=== PATIENT | female | born 1970 | race Caucasian/White ===

== ENCOUNTER 2019-06-06 11:31 | Observation (INO) | payer SELFPAY ==
[~2019-06-06] VITALS: Ht 167.6 cm; Wt 85.4 kg
[~2019-06-06 11:31] MED LIST: AMOXICILLIN/CL875 MG OR; AMOXICILLIN875 MG OR; ANTIVERT PO; ASPIRIN 8181 MG PO; AUGMENTIN875TAB OR; CIPRODEX1 ML AD; CIPROFLOXACN500 MG PO; GABAPENTIN300 MG PO; GLYBURIDE5 MG PO; LISINOPRIL2.5 MG PO; MEDDOSEPAK PO; METFORMIN1000 MG PO; METFORMIN500 MG PO; NEURONTIN100 MG PO; PRAVSTATIN SODI10 MG OR; TRIAMCINOLON0.11 EX; ZOFRAN ODT4 MG PO
--- NOTE | 2019-06-06 11:31 | NUR ---
PT TO ROOM FOR BEDSIDE TRIAGE
--- NOTE | 2019-06-06 12:00 | NUR ---
PT STATES HAVING INTERMITTENT DIZZINESS FOR ONE WEEK. STATES VOMITING WHEN THE DIZZINESS FIRST OCCURED. PT STATES THAT SHE FEELS HERSELF AND ROOM THE SPINNING WHEN IT HAPPENS. PT DENIES ANY DIZZINESS AT THIS TIME. PT IS AOX4, DENIES ANY N/V, C/P, SOB OR WEAKNESS.
[2019-06-06 12:33] LABS: HEMATOCRIT 37.8 % (37.0-47.0); HEMOGLOBIN 12.8 g/dl (12.0-16.0); IMMATURE GRANULOCYTES 0.3 % (0.0-5.0); MEAN CELL VOLUME 80.9 fL CALC (80.0-100.0); MEAN CORPUSCULAR HGB 27.4 pG CALC (26.0-32.0); MEAN CORPUSCULAR HGB CONC 33.9 g/L CALC (32.0-36.0); NEUT# 4.8 thou/uL (2.00-7.15); RED BLOOD COUNT 4.67 mill/uL (4.20-5.60); RED CELL DISTRI WIDTH 13.2 % (11.5-15.5)
[2019-06-06 12:57] LABS: ANION GAP 15 (6-22 (CALC)); BUN 15 mg/dL (7-17); BUN/CREATININE RATIO 25 (12-20 (CALC)); CARBON DIOXIDE 25 mmol/l (22-30); CHLORIDE 103 mmol/l (95-108); CREATININE 0.6 mg/dL (0.5-1.0); GFR > 60 ML/MIN (>=60 (CALC)); GFR FOR AFR.AMER. > 60 ML/MIN (>=60 (CALC)); POTASSIUM 4.1 mmol/l (3.5-5.1); SODIUM 138 mmol/l (137-146)
--- NOTE | 2019-06-06 13:00 | NUR ---
PT INFORMED OF LAB FINDINGS.
--- NOTE | 2019-06-06 14:00 | NUR ---
PT RESTING ON STRETCHER, NO COMPLAINTS STATED AT THIS TIME.
--- NOTE | 2019-06-06 14:37 | NUR ---
MD AT BEDSIDE DISCUSSING FINDINGS
--- NOTE | 2019-06-06 15:14 | NUR ---
PT AMBULATED TO RESTROOM WITH STEADY GAIT. STATES THAT SHE FEELS ALITTLE BETTER
--- NOTE | 2019-06-06 16:01 | NUR ---
REPORT CALLED TO FREDDIE LOU RN ACCTPTED PT
--- NOTE | 2019-06-06 16:23 | NUR ---
Admission Note Report Given to: DASHA RN Transported by: Wheelchair X Stretcher Transported with: X Nurse Transporter X Patent IV O2 X Media Relations Director Location: ICU X MS2 TRANSPORTED TO [facility] [place] WITHOUT INCIDENT
[2019-06-06 16:35] VITALS: BP 146/67
--- NOTE | 2019-06-06 16:40 | NUR ---
PT HAD COME FROM ER VIA WHEELCHAIR. ASSESSMENT DONE. PT IS A&O X3. TELE IN PLACE. IVF INFUSING WELL. RESPS EVEN AND UNLABORED. PT STATED SHE STILL FEEL DIZZY AT TIMES. SAFETY PRECAUTIONS REINFORCED AND CALL LIGHT IN REACH. FAMILY IN ROOM.
[2019-06-06 19:12] VITALS: BP 115/66
--- NOTE | 2019-06-06 19:51 | NUR ---
PT LAYING IN BED WATCHING TV. A&O X3. NO DISTRESS NOTED. PT DENIES ANY DIZZINESS AT THIS TIME, BUT EXPRESSES THAT IT COMES AND GOES. SOMETIMES SHE FEELS GOOD AND SOMETIMES SHE DOESN'T. STATES SHE DOES NOT WANT TO TAKE ANY INSULIN TONIGHT UNLESS IT IS ABSOLUTELY NECESSARY. ASSESSMENT COMPLETED. DISCUSSED POC. CALL LIGHT IN REACH. CONTINUE TO MONITOR.
--- NOTE | 2019-06-06 21:48 | NUR ---
PT C/O OF PAIN IN BILATERAL LEGS. TYLENOL GIVEN. PT DESCRIBES PAIN "CRAMPING AND TINGLING" BUT DENIES EVER BEING DIAGNOSED WITH NEUROPATHY OR RLS. CONTINUE TO MONITOR
--- NOTE | 2019-06-07 00:02 | NUR ---
PT SLEEPING IN BED. NO DISTRESS NOTED. RESP EVEN AND UNLABORED. CONTINUE TO MONITOR.
[2019-06-07 00:25] VITALS: BP 129/76
--- NOTE | 2019-06-07 03:03 | NUR ---
PT SLEEPING IN BED. NO DISTRESS NOTED. RESP EVEN AND UNLABORED. CONTINUE TO MONITOR
[2019-06-07 05:52] VITALS: BP 135/83
[2019-06-07 05:57] VITALS: BP 124/79
[2019-06-07 06:02] VITALS: BP 123/84
[2019-06-07 07:50] VITALS: BP 125/78
--- NOTE | 2019-06-07 07:50 | NUR ---
ASSESSMENT IS COMPLETED: IV SITE IS FREE FROM REDNESS OR EDEMA. HR IS REG,PULSES ARE STRONG X4, ABD IS SOFT WITH ACTIVE BS. BREATH SOUNDS ARE CLEAR BILATERALLY. NO C/O SOB. TELE MONITOR IN PLACE. CONTINUE TO OSBERVE AND MONITOR.
[2019-06-07 11:05] VITALS: BP 128/76
--- NOTE | 2019-06-07 12:20 | NUR ---
PT IS RELAXING IN BED WITH NO DISTRESS NOTED. IV SITE IS FREE FROM REDNESS OR EDEMA.
[2019-06-07] MEDS ORDERED: ANTIVERT12.5 MG PO (14:24)
--- NOTE | 2019-06-07 15:32 | NUR ---
TRANSPORTED PT TO ER PARKING LOT WITH FAMILY
--- NOTE | 2019-06-07 15:35 | NUR ---
IV SITE DISCONITNUED CATHETER INTACT NO REDNESS OR EDEMA. TELE DISCONITNUED . DISCHARGE INSTRUCTIONS GIVEN TO PT AND FAMILY. VERBALIZED UNDERSTANDING.
--- NOTE | 2019-06-07 15:40 | NUR ---
Discharge instructions given. Patient verbalizes understanding of same. Discharged in stable condition via Wheelchair to Home with family. All belongings sent with pt.
== END 2019-06-07 15:30 | disposition home or self-care (01) | DRG 149 ==
LOC: ED 11:31 → ED-I 14:34 → ED 14:51 → MS2 14:52
PROVIDERS: Family Medicine; ADMIT Internal Medicine; ATTEND Internal Medicine
DX: R42 Dizziness and giddiness (principal); E11.9 Type 2 diabetes mellitus without complications; Z79.84 Long term (current) use of oral hypoglycemic drugs
CPT/HCPCS: G0378

== ENCOUNTER 2023-11-15 15:46 | Emergency (ER) | payer SELFPAY ==
[~2023-11-15] VITALS: Ht 167.6 cm; Wt 99.0 kg
[~2023-11-15 15:46] MED LIST changes: +ANTIVERT12.5 MG PO
[2023-11-15 16:00] VITALS: BP 138/66
[2023-11-15] MEDS ORDERED: KETOROLAC TROMETHAMINE 30 MG/ML SDV IM ONE (16:00)
[2023-11-15] MEDS ORDERED: NAPROXEN 250 MG/TAB PO ONE (16:05)
[2023-11-15 16:30] VITALS: BP 131/75
[2023-11-15 17:00] VITALS: BP 120/61
[2023-11-15 17:30] VITALS: BP 135/71
[2023-11-15 18:00] VITALS: BP 133/70
[2023-11-15] MEDS ORDERED: NAPROXEN500 MG PO (18:15)
[2023-11-15 18:26] VITALS: BP 133/70
== END 2023-11-15 18:32 | disposition home or self-care (01) | DRG 554 ==
LOC: ED 15:46
DX: M17.11 Unilateral primary osteoarthritis, right knee (principal); M23.41 Loose body in knee, right knee; E11.9 Type 2 diabetes mellitus without complications; Z79.84 Long term (current) use of oral hypoglycemic drugs